=== PATIENT | female | born 1955 | race Caucasian/White ===

== ENCOUNTER 2018-07-24 18:55 | Emergency (ER) | payer BC ==
[2018-07-24] MEDS: Sodium Chloride 0.9% 1,000 ML IV STA (19:54)
[2018-07-24] MEDS: Ketorolac 30 MG/ML SDV IVPUSH ONE (19:54)
[2018-07-24] MEDS: Sodium Chloride 0.9% 10 ML Syringe FLUSH PRN (19:55)
[2018-07-24] MEDS: Piperacillin/Tazobactam 4.5 GM in Sodium Chloride 0.9% 100 ML IV SCH (20:12)
[2018-07-24] MEDS: Piperacillin/Tazobactam 4.5 GM in Sodium Chloride 0.9% 100 ML IV ONE (20:14)
--- NOTE | 2018-07-24 21:08 | EDM.PDOC ---
ED HPI GENERAL MEDICAL PROBLEM - General Chief Complaint: Genitourinary Problem Stated Complaint: SHAKEY/ACHES EVERYWHERE Time Seen by Provider: 07/24/18 19:21 Source of Information: Reports: Patient History Limitations: Reports: No Limitations - History of Present Illness INITIAL COMMENTS - FREE TEXT/NARRATIVE: The patient presents with body aches and shaking. This started today. She said last week she had some dysuria and she saw Skye Vasquez. A UA was done and it did not look that bad. A culture was done. Her symptoms got worse over the weekend and she called today to see if the culture was back and it was positive. She was put on some macrobid. She developed the shaking tonight and came to bee seen. She says she does have generalized muscle aches. She is thirsty and she has a low grade temp here of 99.1. She has some urinary symptoms as well. She has no abdominal pain, nausea or vomiting. Onset: Gradual Duration: Day(s): Location: Reports: Generalized Quality: Reports: Ache Severity: Severe (at times) Improves with: Reports: None Worsens with: Reports: None Associated Symptoms: Reports: No Other Symptoms Generalized Pain Score (Numeric/FACES): 9 - Related Data Allergies Allergy/AdvReac Type Severity Reaction Status Date / Time seasonal Allergy Swollen Uncoded 07/24/18 19:27 Eyes Home Meds: Home Meds Aspirin 81 mg PO DAILY 07/24/18 [History] FLUoxetine HCl [Prozac] 20 mg PO DAILY 07/24/18 [History] Hydroxychloroquine [Plaquenil] 200 mg PO DAILY 07/24/18 [History] Losartan/Hydrochlorothiazide [Hyzaar 50-12.5 Tablet] 1 tab PO DAILY 07/24/18 [ History] Meloxicam 15 mg PO DAILY 07/24/18 [History] Potassium Chloride [Klor-Con 10] 10 meq PO DAILY 07/24/18 [History] Rosuvastatin [Crestor] 5 mg PO DAILY 07/24/18 [History] predniSONE [Prednisone] 3.5 mg PO DAILY 07/24/18 [History] Past Medical History Cardiovascular History: Reports: High Cholesterol, Hypertension Musculoskeletal History: Reports: Arthritis Social & Family History - Tobacco Use Smoking Status *Q: Never Smoker - Caffeine Use Caffeine Use: Reports: Coffee - Recreational Drug Use Recreational Drug Use: No ED ROS GENERAL - Review of Systems Review Of Systems: See Below Constitutional: Reports: Fever, Chills HEENT: Reports: No Symptoms Respiratory: Reports: No Symptoms Cardiovascular: Reports: No Symptoms Endocrine: Reports: No Symptoms GI/Abdominal: Reports: No Symptoms : Reports: Dysuria, Frequency ED EXAM, GI/ABD - Physical Exam Exam: See Below Exam Limited By: No Limitations General Appearance: Alert, No Apparent Distress Ears: Normal External Exam Nose: Normal Inspection Head: Atraumatic, Normocephalic Neck: Normal Inspection Respiratory/Chest: No Respiratory Distress, Lungs Clear, Normal Breath Sounds Cardiovascular: Regular Rate, Rhythm, No Edema, No Murmur GI/Abdominal Exam: Soft, Non-Tender, No Organomegaly, No Mass Back Exam: Normal Inspection Extremities: Normal Inspection Course - Vital Signs Last Recorded V/S: Last Vital Signs Temp 99.1 F 07/24/18 19:17 Pulse 108 H 07/24/18 19:17 Resp 18 07/24/18 19:17 BP 140/79 07/24/18 19:17 Pulse Ox 97 07/24/18 19:17 - Orders/Labs/Meds Orders: Active Orders 24 hr Category Date Time Status Peripheral IV Care [RC] . DIRECTED Care 07/24/18 19:34 Active CULTURE BLOOD [BC] Stat Lab 07/24/18 19:50 Received CULTURE BLOOD [BC] Stat Lab 07/24/18 20:00 Received Sodium Chloride 0.9% [Saline Flush] Med 07/24/18 19:33 Active 10 ml FLUSH ASDIRECTED PRN Blood Culture x2 Reflex Set [OM.PC] Stat Oth 07/24/18 19:36 Ordered Peripheral IV Insertion Adult [OM.PC] Stat Oth 07/24/18 19:33 Ordered Medication Orders Sodium Chloride (Saline Flush) 10 ml FLUSH ASDIRECTED PRN PRN Reason: Keep Vein Open Last Admin: 07/24/18 19:55 Dose: 10 ml Labs: Laboratory Tests 07/24/18 07/24/18 Range/Units 19:50 19:50 WBC 9.89 (3.98-10.04) K/mm3 RBC 4.51 (3.98-5.22) M/mm3 Hgb 13.5 (11.2-15.7) gm/L Hct 40.0 (34.1-44.9) % MCV 88.7 (79.4-94.8) fl MCH 29.9 (25.6-32.2) pg MCHC 33.8 (32.2-35.5) g/dl RDW Std Deviation 40.7 (36.4-46.3) fL Plt Count 214 (182-369) K/mm3 MPV 9.7 (9.4-12.3) fl Neut % (Auto) 91.3 H (34.0-71.1) % Lymph % (Auto) 4.4 L (19.3-51.7) % [place] % (Auto) 3.9 L (4.7-12.5) % Eos % (Auto) 0.1 L (0.7-5.8) Baso % (Auto) 0.1 (0.1-1.2) % Neut # (Auto) 9.02 H (1.56-6.13) K/mm3 Lymph # (Auto) 0.44 L (1.18-3.74) K/mm3 [place] # (Auto) 0.39 H (0.24-0.36) K/mm3 Eos # (Auto) 0.01 L (0.04-0.36) K/mm3 Baso # (Auto) 0.01 (0.01-0.08) K/mm3 Manual Slide Review Normal smear Sodium 137 (136-145) mEq/L Potassium 3.2 L (3.5-5.1) mEq/L Chloride 99 (98-107) mEq/L Carbon Dioxide 24 (21-32) mEq/L Anion Gap 17.2 H (5-15) BUN 16 (7-18) mg/dL Creatinine 1.0 (0.55-1.02) mg/dL Est Cr Clr Drug Dosing 53.20 mL/min Estimated GFR (MDRD) 56 (>60) mL/min BUN/Creatinine Ratio 16.0 (14-18) Glucose 120 H (80-115) mg/dL Calcium 9.3 (8.5-10.1) mg/dL Total Bilirubin 1.7 H (0.2-1.0) mg/dL AST 20 (15-37) U/L ALT 23 (14-59) U/L Alkaline Phosphatase 62 (46-116) U/L Total Protein 7.6 (6.4-8.2) g/dl Albumin 3.9 (3.4-5.0) g/dl Globulin 3.7 gm/dL Albumin/Globulin Ratio 1.1 (1-2) Lipase 105 (73-393) U/L Meds: Medications Generic Name Dose Route Start Last Admin Trade Name Luisa PRN Reason Stop Dose Admin Sodium Chloride 10 ml 07/24/18 19:33 07/24/18 19:55 Saline Flush FLUSH 10 ml ASDIRECTED PRN Administration Keep Vein Open Discontinued Medications Generic Name Dose Route Start Last Admin Trade Name Freq PRN Reason Stop Dose Admin Sodium Chloride 1,000 mls @ 1,000 mls/hr 07/24/18 19:33 07/24/18 19:54 Normal Saline IV 07/24/18 20:32 1,000 mls/hr .BOLUS STA Administration Piperacillin Sod/Tazobactam 100 mls @ 25 mls/hr 07/24/18 19:45 07/24/18 20:12 Sod 4.5 gm/ Sodium Chloride IV Not Given Q8H AGATHA Piperacillin Sod/Tazobactam 100 mls @ 200 mls/hr 07/24/18 20:11 07/24/18 20: 14 Sod 4.5 gm/ Sodium Chloride IV 07/24/18 20:40 200 mls/hr ONETIME ONE Administration Ketorolac Tromethamine 30 mg 07/24/18 19:34 07/24/18 19:54 Toradol IVPUSH 07/24/18 19:35 30 mg ONETIME ONE Administration - Re-Assessments/Exams Free Text/Narrative Re-Assessment/Exam: 07/24/18 21:07 I ordered an IV NS 1L bolus, toradol 30mg IV, labs and blood cultures. It appears the urine culture is growing out citrobacter farmeri susceptible to the nitrofuratnoin she is on. I gave her a dose of zosyn here. I am restricted to what I can give IV due to the susceptibilities. She is feeling better. I will discharge her home. Departure - Departure Time of Disposition: 21:15 Disposition: Home, Self-Care 01 Condition: Good Clinical Impression: UTI, Urinary tract infectious disease - Discharge Information *PRESCRIPTION DRUG MONITORING PROGRAM REVIEWED*: Not Applicable *COPY OF PRESCRIPTION DRUG MONITORING REPORT IN PATIENT DEBORAH: Not Applicable Referrals: Skye Vasquez, A[employer]IS[employer] AIDS DIRECTOR [Primary Care Provider] - 1 Week Forms: ED Department Discharge Additional Instructions: Drink plenty of fluids. Take the antibiotic as prescribed. Take motrin or tylenol for pain. Please return if you are worse. - My Orders Last 24 Hours: My Active Orders 07/24/18 19:33 Sodium Chloride 0.9% [Saline Flush] 10 ml FLUSH ASDIRECTED PRN Peripheral IV Insertion Adult [OM.PC] Stat 07/24/18 19:34 Peripheral IV Care [RC] . DIRECTED 07/24/18 19:36 Blood Culture x2 Reflex Set [OM.PC] Stat 07/24/18 19:50 CULTURE BLOOD [BC] Stat 07/24/18 20:00 CULTURE BLOOD [BC] Stat - Assessment/Plan Last 24 Hours: My Active Orders 07/24/18 19:33 Sodium Chloride 0.9% [Saline Flush] 10 ml FLUSH ASDIRECTED PRN Peripheral IV Insertion Adult [OM.PC] Stat 07/24/18 19:34 Peripheral IV Care [RC] . DIRECTED 07/24/18 19:36 Blood Culture x2 Reflex Set [OM.PC] Stat 07/24/18 19:50 CULTURE BLOOD [BC] Stat 07/24/18 20:00 CULTURE BLOOD [BC] Stat
== END 2018-07-24 21:09 | disposition home or self-care (01) ==
LOC: JD.ED 18:55
DX: N39.0 Urinary tract infection, site not specified (principal); E78.00 Pure hypercholesterolemia, unspecified; I10 Essential (primary) hypertension; Z79.82 Long term (current) use of aspirin; Z79.899 Other long term (current) drug therapy
CPT/HCPCS: 36415; 80053; 83690; 85025; 87040; 96365; 96375; 99283-25; 99284; J1885; J2543; J7030; J7040